=== PATIENT | female | born 1990 | race Caucasian/White ===

== ENCOUNTER 2019-03-12 15:13 | Emergency (ER) | payer OTHER ==
[~2019-03-12] VITALS: Ht 152.4 cm; Wt 51.7 kg
[2019-03-12] MEDS ORDERED: IV NORMAL SALINE 1,000ML 1,000 ML IV ONE (15:30)
--- NOTE | 2019-03-12 15:51 | PHYS DOC ---
Past History Past Medical History: No Pertinent History, Other Past Surgical History: Appendectomy, Smoking: Non-smoker Additional Smoking Information: CUT BACK TO 5/DAY Alcohol Use: None Drug Use: None Adult General Chief Complaint Chief Complaint: VOMITING IN HPI HPI 28 year old female presents with vomiting. She believes she is 6 weeks . She has had a positive home test. This is her fourth . She has been having nausea and vomiting daily and it's making it difficult for her to go to work. She just wants to vomiting control so she can work. 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 She denies abdominal cramping, vaginal bleeding or vaginal discharge. She denies fever or chills. Review of Systems Review of Systems Constitutional: Denies fever or chills [] Eyes: Denies change in visual acuity, redness, or eye pain [] HENT: Denies nasal congestion or sore throat [] Respiratory: Denies cough or shortness of breath [] Cardiovascular: No additional information not addressed in HPI [] GI: nausea, vomiting. Denies abdominal pain, bloody stools or diarrhea [] : Denies dysuria or hematuria [] Musculoskeletal: Denies back pain or joint pain [] Integument: Denies rash or skin lesions [] Neurologic: Denies headache, focal weakness or sensory changes [] Endocrine: Denies polyuria or polydipsia [] All other systems were reviewed and found to be within normal limits, except as documented in this note. Current Medications Current Medications Current Medications Medications (Trade) Dose Ordered Sig/Feliciano Start Time Stop Time Status Last Admin Dose Admin Ondansetron HCl (Zofran) 4 mg 1X ONCE 03/12/19 16:00 03/12/19 16:01 03/12/19 15:39 4 MG Sodium Chloride 1,000 ml @ 1,000 mls/hr 1X ONCE 03/12/19 15:30 03/12/19 16:29 03/12/19 15:39 1,000 MLS/HR Allergies Allergies Allergies Coded Allergies Type Severity Reaction Last Updated Verified adhesive Allergy Unknown rash 05/19/13 Yes Physical Exam Physical Exam Constitutional: Well developed, well nourished, no acute distress, non-toxic appearance. [] HENT: Normocephalic, atraumatic, bilateral external ears normal, oropharynx moist, no oral exudates, nose normal. [] Eyes: PERRLA, EOMI, conjunctiva normal, no discharge. [] Neck: Normal range of motion, no tenderness, supple, no stridor. [] Cardiovascular:Heart rate regular rhythm, no murmur [] Lungs & Thorax: Bilateral breath sounds clear to auscultation [] Abdomen: Bowel sounds normal, soft, no tenderness, no masses, no pulsatile masses. [] Skin: Warm, dry, no erythema, no rash. [] Back: No tenderness, no CVA tenderness. [] Extremities: No tenderness, no cyanosis, no clubbing, ROM intact, no edema. [] Neurologic: Alert and oriented X 3, normal motor function, normal sensory function, no focal deficits noted. [] Psychologic: Affect normal, judgement normal, mood normal. [] EKG EKG [] Radiology/Procedures Radiology/Procedures [] Course & Med Decision Making Course & Med Decision Making Pertinent Labs and Imaging studies reviewed. (See chart for details) Patient's labs are unremarkable. Her hCG is 2405. I've given her liter normal saline and 4 mg of Zofran. She has not had any further vomiting in the ED. I will discharge her with a prescription for promethazine and I have advised her to try Unisom and B6 first. She is stable for discharge at this time. [] Dragon Disclaimer Dragon Disclaimer This electronic medical record was generated, in whole or in part, using a voice recognition dictation system. Departure Departure: Impression: Primary Impression: Vomiting during Disposition: 01 HOME, SELF-CARE Condition: IMPROVED Referrals: PCP,SERGIO (PCP) Patient Instructions: Nausea and Vomiting, [id number], - First Trimester, [id number] Scripts Promethazine Hcl (PROMETHAZINE HCL) 12.5 Mg Tablet 1 TAB PO Q6HRS PRN for VOMITING for 7 Days, #28 TAB 0 Refills Prov: SABI GARDNER DO 03/12/19 SABI GARDNER DO Mar 12, 2019 15:51
[2019-03-12 15:59] LABS: CALCIUM 8.3 mg/dL (8.5-10.1); CREATININE 0.6 mg/dL (0.6-1.0); GFR 120.8; POTASSIUM 3.7 mmol/L (3.5-5.1)
[2019-03-12] MEDS ORDERED: ONDANSETRON PF 4 MG/2 ML VIAL. IVP ONE (16:00)
[2019-03-12] MEDS ORDERED: PROM12.58 PO (16:00)
[2019-03-12 16:04] LABS: ALBUMIN/GLOBULIN RATIO 0.8 (1.0-1.7); BASO # 0.1 x10^3/uL (0.0-0.2); BASO % 1 % (0-3); EOS # 0.2 x10^3/uL (0.0-0.7); EOS % 2 % (0-3); HEMATOCRIT 35.5 % (36.0-47.0); HEMOGLOBIN 10.7 g/dL (12.0-15.5); LYMPH # 2.9 x10^3/uL (1.0-4.8); LYMPH % 36 % (24-48); MEAN CORPUSCULAR HEMOGLOBIN 21 pg (25-35); MEAN CORPUSCULAR HGB CONC 30 g/dL (31-37); MEAN CORPUSCULAR VOLUME 69 fL (79-100); MONO # 0.6 x10^3/uL (0.0-1.1); MONO % 8 % (0-9); NEUT # 4.4 x10^3uL (1.8-7.7); NEUT % 53 % (31-73); PLATELET COUNT 379 x10^3/uL (140-400); RED BLOOD COUNT 5.12 x10^6/uL (3.50-5.40); RED CELL DISTRIBUTION WIDTH 22.7 % (11.5-14.5); TOTAL BILIRUBIN 0.1 mg/dL (0.2-1.0); WHITE BLOOD COUNT 8.2 x10^3/uL (4.0-11.0)
[2019-03-12 16:24] VITALS: BP 98/54
[2019-03-12 17:03] LABS: BILIRUBIN,URINE NEG (NEG); CLARITY,URINE CLEAR; COLOR,URINE YELLOW; GLUCOSE,URINE NEG (NEG); NITRITE,URINE NEG (NEG); UROBILINOGEN,URINE 0.2 mg/dL (0.2 mg/dL)
[2019-03-12 17:04] LABS: BACTERIA,URINE 0 /HPF (0-FEW); RBC,URINE 0 /HPF (0-2); SQUAMOUS EPITHELIAL CELL,UR OCC /LPF; WBC,URINE 0 /HPF (0-4)
[2019-03-12 17:21] LABS: ANISOCYTOSIS SLIGHT; HYPOCHROMIA MOD; MICROCYTOSIS MOD; OVALOCYTES FEW; PLT ESTIMATE ADEQUATE (ADEQUATE); SCHISTOCYTES OCC; TEAR DROP CELLS OCC
== END 2019-03-12 16:56 | disposition home or self-care (01) ==
LOC: ER 15:13
DX: O21.9 Vomiting of pregnancy, unspecified (principal); Z3A.01 Less than 8 weeks gestation of pregnancy; Z88.8 Allergy status to other drugs, medicaments and biological substances
CPT/HCPCS: 36415; 80053; 81001; 84702; 85025; 96361; 96374; 99284; J2405; J7030

== ENCOUNTER 2019-09-25 09:43 | Emergency (ER) | payer OTHER ==
[~2019-09-25] VITALS: Ht 152.4 cm; Wt 59.1 kg
[~2019-09-25 09:43] MED LIST: PROM12.58 PO
[2019-09-25 09:47] VITALS: BP 117/61
--- NOTE | 2019-09-25 10:55 | PHYS DOC ---
Past History Past Medical History: No Pertinent History Past Surgical History: Appendectomy, , Hysterectomy Smoking: Non-smoker Alcohol Use: None Drug Use: None Adult General Chief Complaint Chief Complaint: CHEST PAIN HPI HPI Patient is a 29-year-old female with no remarkable past medical history pr esenting for URI-like symptoms Onset was 2 days ago without known inciting event Nothing known makes better, has not administered anything to try and make better. Nothing known specifically makes worse Patient denies being in any pain Timing of symptoms has been constant and worsening since onset Associated symptoms include headache, sinus pressure, rhinorrhea that is clear, dry nonproductive cough, and generalized malaise Patient has been afebrile throughout entirety of illness, admits cleaning houses for a living and unsure if she has been exposed to any known COVID positive individuals. Nonetheless, employer wanting patient to be evaluated and tested for COVID-19 prior to returning to work Review of Systems Review of Systems Fourteen body systems of review of systems have been reviewed. See HPI for pertinent positives and negative responses, other roth all other systems are negative, non-pertinent or non-contributory Allergies Allergies Allergies Coded Allergies Type Severity Reaction Last Updated Verified adhesive Allergy Unknown rash 05/19/13 Yes Physical Exam Physical Exam Constitutional: Well developed, well nourished, no acute distress, non-toxic appearance. [] HENT: Normocephalic, atraumatic, bilateral external ears normal, oropharynx moist, no oral exudates, nose normal. [] Eyes: PERRLA, EOMI, conjunctiva normal, no discharge. [] Neck: Normal range of motion, no tenderness, supple, no stridor. [] Cardiovascular:Heart rate regular rhythm, no murmur [] Lungs & Thorax: Bilateral breath sounds clear to auscultation [] Abdomen: Bowel sounds normal, soft, no tenderness, no masses, no pulsatile masses. [] Skin: Warm, dry, no erythema, no rash. [] Back: No tenderness, no CVA tenderness. [] Extremities: No tenderness, no cyanosis, no clubbing, ROM intact, no edema. [] Neurologic: Alert and oriented X 3, normal motor function, normal sensory function, no focal deficits noted. [] Psychologic: Affect normal, judgement normal, mood normal. [] Current Patient Data Vital Signs Vital Signs Date Time Temp Pulse Resp B/P (MAP) Pulse Ox O2 Delivery O2 Flow Rate FiO2 09/25/19 09:47 98.4 83 16 117/61 (79) 99 Room Air EKG EKG [] Radiology/Procedures Radiology/Procedures PROCEDURE: CHEST AP ONLY CHEST AP ONLY History: Reason: chest pain / Spl. Instructions: / History: Comparison: None. Findings: No consolidation or pleural effusion. Normal heart size. No pneumothorax. Nipple shadow projecting over the right lung base. Impression: 1. No acute cardiopulmonary process. Electronically signed by: Bao Mccrary DO (09/25/2019 10:52 AM) [facility] Course & Med Decision Making Course & Med Decision Making Presentation most consistent with Viral Syndrome. Based on vitals and exam they are nontoxic and stable for discharge. Given History and Exam I have a lower suspicion for: Emergent CardioPulmonary causes [such as Acute Asthma or COPD Exacerbation, acute Heart Failure or exacerbation, PE, PTX, atypical ACS, PNA]. Emergent Otolaryngeal causes [such as SOLAR INSTALLATION FOREMAN, RPA, Ludwigs, Epiglottitis, EBV]. Regarding Emergent Travel or Immunosuppressive related infectious: I have a low suspicion for acute HIV. 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 Will provide strict return precautions and instructions on self- isolation/quarantine and anticipatory guidance. 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 Departure Departure: Impression: Primary Impression: Person under investigation for COVID-19 Additional Impression: URI (upper respiratory infection) Disposition: 01 HOME/RESIDENCE PRIOR TO ADM Condition: STABLE Referrals: PCP,SERGIO (PCP) Additional Instructions: Short You were evaluated in the Emergency Department today for a cough. Your evaluation suggests a viral infection such as Coronavirus. It is important that you continue to self isolate and practice good hygiene at home. Please follow up with your primary care physician as discussed. Return to the Emergency Department if you experience worsening cough, fever, shortness of breath, recurrent vomiting, lethargy, or any other concerning symptoms. Thank you for choosing us for your care. Usted fue evaluado en el Departamento de Emergencia hoy por tos. Belle evaluacin sugiere crow infeccin viral jd el coronavirus. Es importante que contine aislndose y practicando crow buena higiene en el hogar. Sally un seguimiento con belle mdico de atencin primaria jd se discuti. Regrese al Departamento de Emergencias si experimenta un empeoramiento de la tos, fiebre, falta de aliento, vmitos recurrentes, letargo o cualquier otro sntoma relacionado. Puneet por elegir nosotros para belle atencin. Home Care Instructions for Patients with Mild Respiratory Infection Most people with respiratory infections like colds, the flu, and Coronavirus Disease (COVID-19) will have mild illness and can get better with appropriate home care and without the need to see a provider. People who are elderly, , or have a weak immune system, or other medical problem are at higher risk of more serious illness or complications. It is recommended that they carefully monitor their symptoms closely and seek medical care early if their symptoms get worse. TREATMENT AND MEDICAL CARE Treatment There is no specific treatment for most viruses including those that that cause the common cold and those that cause COVID-19. Sometimes there is treatment for the viruses that cause influenza if given early. Antibiotics treat infections caused by bacteria, but they do not work against viruses.Most people recover on their own from these viruses, including COVID-19. Here are steps that you can take to help you get better: Rest Drink plenty of fluids Take lzpx-eiq-[id number] cold and flu medications to reduce fever and pain. Follow the instructions on the package, unless your doctor gave you instructions. Note that these medicines do not ``cure the illness and therefore do not stop you from spreading germs. Children should not be given medication that contains aspirin (acetylsalicylic acid) because it can cause a rare but serious illness called Shahid syndrome. Medicines without aspirin include acetaminophen (Tylenol) and ibuprofen (Advil, Motrin). Children younger than age 2 should not be given any uolr-eat-owlqgsn cold medications without first speaking with a doctor.Seeking Medical Care You should seek medical care if you are not getting better within a week, or if your symptoms get worse. If you are elderly, , have a weak immune system, or other medical problems, call your doctor right away. It is best to call ahead of time to discuss your symptoms, if possible. This may allow you to receive the advice you need by phone. By avoiding a visit to a healthcare facility, you protect yourself from getting a new infection and protect others from catching an infection from you. If you do visit a healthcare facility, put on a mask to protect other patients and staff. It is recommended that you seek medical care for serious symptoms, such as: People with potentially life-threatening symptoms should call 911. If possible, put on a facemask before emergency medical services arrive.PROTECTING OTHERS Follow the steps below to help prevent the disease from spreading to people in your home and community.Stay home when you are sick Stay home - do not go to work, school, or public areas. Stay home for at least 24 hours after your symptoms have gone away without the use of fever-reducing medicines. If you must leave home while you are sick, try to avoid using public transportation, ride-shares, and taxis. Wear a mask if possible. Separate yourself from other people and animals in your home Stay in a specific room and away from other people in your home as much as possible. Use a separate bathroom, if available. Try to stay at least 6 feet from others. Do not handle pets or other animals while you are sick. Cover your coughs and sneezes Cover your mouth and nose with a tissue when you cough or sneeze. Throw used tissues in a lined trash can; immediately wash your hands. Avoid sharing personal household items Do not share dishes, drinking glasses, cups, eating utensils, towels, or bedding with other people or pets in your home. Wash them thoroughly with soap and water after use. Clean your hands often Wash your hands often with soap and water for at least 20 seconds. If soap and water are not available, clean your hands with an alcohol-based hand pattern grader supervisor that contains at least 60% alcohol, covering all surfaces of your hands and rubbing them together until they feel dry. Use soap and water if your hands are visibly dirty. Clean all ``high-touch surfaces every day High touch surfaces include counters, tabletops, doorknobs, bathroom fixtures, toilets, phones, keyboards, tablets, and bedside tables. Also, clean any surfaces that may have body fluids on them. Use a household cleaning spray or wipe, according to the product label instructions. COVID-19 (Novel Coronavirus) FAQs for Inquiring Patients What do you do if you are worried that you have been exposed to COVID-19 but are without any symptoms? If you develop symptoms that may indicate an infection, contact your physician. These include fever, cough, and shortness of breath. Testing is not available for asymptomatic individuals, regardless of travel history. To reduce the chance of getting sick use general infection prevention measures such as hand washing, covering your mouth and nose when you cough or sneeze and discarding any tissues carefully, and staying home when you are sick.Can exceptions be made for patients who are really worried and want to be tested? Presently testing is only available through the [facility] Department of Public Health and Centers for Disease Control and Prevention. Only patients who meet the updated COVID-19 PUI definition may be tested. We do not control or set the PUI definition or evaluation criteria. We are unable to provide testing to patients who do not meet the strict criteria. Should patients cancel or postpone an upcoming trip? The decision about travel is personal and should be made in the context of a persons underlying health conditions, reason for travel and necessity of travel. Travel insurance generally does not cover cancellations due to concerns of infectious disease outbreaks. The Center for Disease Control has a section on travel notices. Situations are changing frequently and you should monitor the site for updates. Should situations change rapidly in a foreign country while they are traveling, you could be subject to quarantine or restrictions upon return to the [place]. It is best to have a plan on how to return urgently if needed during a trip abroad. Because of how air circulates and is filtered on airplanes, most viruses do not spread easily on airplanes. CDC does not recommend use of facemasks during air travel.What other general precautions are advised? Patients should be instructed to: Avoid close contact with people who are sick. Avoid touching your eyes, nose and mouth. Stay home from work or school when they are sick. If you have a fever, you should remain home until 24 hours after fever resolves. Clean and disinfect frequently touched objects and surfaces using a regular household cleaning spray or wipe. Sneeze/cough into their elbow, not your hand. Practice frequent hand hygiene with soap and water (at least 20 seconds) or alcohol-based hand rub. Consider avoiding crowded places or mass gatherings, especially if you are immunocompromised or have chronic lung disease. There is no evidence to support transmission of COVID-19 from goods imported from [place]. Are there any special precautions that are recommended if I am ? There is not yet any information available about the susceptibility of women to COVID-19. As a general rule, women may be more susceptible to viral respiratory infections and at risk for more severe illness. The CDC guidance for COVID-19 and has answers to questions about transmission during delivery, as well as other situations. Should food, water, or medications be stockpiled? Should people telecommute? The CDC has excellent information on this. Please visit the CDCs guidance for getting your household ready for COVID-19. What should I do if I start feeling sick at work? And what should the workplace do for anyone exposed? Anyone who is sick with a fever and cough should stay home from work until at least 24 hours after resolution of fever, regardless of concerns for COVID-19. It is still influenza (flu) season and influenza remains far more common. Justification of Admission: Justification of Admission: Justification of Admission Dx: N/A Problem Qualifiers SILVINO LEA DO Sep 25, 2019 10:55
--- NOTE | 2019-09-26 11:08 | NUR ---
IP: patient notified of COVID result.
== END 2019-09-25 11:15 | disposition home or self-care (01) ==
LOC: ER 09:43
DX: J06.9 Acute upper respiratory infection, unspecified (principal); Z20.828 Contact with and (suspected) exposure to other viral communicable diseases; Z90.49 Acquired absence of other specified parts of digestive tract; Z98.890 Other specified postprocedural states; Z90.710 Acquired absence of both cervix and uterus; Z88.8 Allergy status to other drugs, medicaments and biological substances
CPT/HCPCS: 36415; 71045; 99284; U0003

== ENCOUNTER 2019-10-22 15:38 | Emergency (ER) | payer OTHER ==
[~2019-10-22] VITALS: Ht 152.4 cm; Wt 59.0 kg
[2019-10-22] MEDS ORDERED: PRED20TA PO (16:54)
[2019-10-22] MEDS ORDERED: TRAM50TA PO (16:54)
--- NOTE | 2019-10-22 16:54 | PHYS DOC ---
Past History Past Medical History: No Pertinent History Past Surgical History: Appendectomy, , Hysterectomy Smoking: Non-smoker Alcohol Use: None Drug Use: None General Adult EDM: Chief Complaint: HAND PROBLEM HPI: HPI: Patient is a 29-year-old female who presented to ER today for evaluation pain on her left wrist that migrated into her left elbow and her left shoulder intermittently for about 3 weeks. Patient denies any injury, denies any chest pain, no fever, no cough, no trouble breathing. Review of Systems: Review of Systems: Constitutional: Denies fever or chills Eyes: Denies change in visual acuity HENT: Denies nasal congestion or sore throat Respiratory: Denies cough or shortness of breath Cardiovascular: Denies chest pain or edema GI: Denies abdominal pain, nausea, vomiting, bloody stools or diarrhea : Denies dysuria Musculoskeletal: Denies back pain , positive for joint pain in her left wrist, left elbow, left shoulder. Integument: Denies rash Neurologic: Denies headache, focal weakness or sensory changes Endocrine: Denies polyuria or polydipsia Lymphatic: Denies swollen glands Psychiatric: Denies depression or anxiety Heart Score: Risk Factors: Risk Factors: DM, Current or recent (<one month) smoker, HTN, HLP, family history of CAD, obesity. Risk Scores: Score 0 - 3: 2.5% MACE over next 6 weeks - Discharge Home Score 4 - 6: 20.3% MACE over next 6 weeks - Admit for Clinical Observation Score 7 - 10: 72.7% MACE over next 6 weeks - Early Invasive Strategies Current Medications: Current Meds: Current Medications Medications (Trade) Dose Ordered Sig/[facility] Start Time Stop Time Status Last Admin Dose Admin Ketorolac Tromethamine (Toradol Im) 60 mg 1X ONCE 10/22/19 17:00 10/22/19 17:01 UNV Methylprednisolone Sodium Succinate (SOLU-Medrol 125MG VIAL) 125 mg 1X ONCE 10/22/19 17:00 10/22/19 17:01 UNV Allergies: Allergies: Allergies Coded Allergies Type Severity Reaction Last Updated Verified adhesive Allergy Unknown rash 10/22/19 Yes ibuprofen Allergy Unknown 10/22/19 Yes Physical Exam: PE: Constitutional: Well developed, well nourished, no acute distress, non-toxic appearance. [] HENT: Normocephalic, atraumatic, bilateral external ears normal, oropharynx moist, no oral exudates, nose normal. [] Eyes: PERRLA, EOMI, conjunctiva normal, no discharge. [] Neck: Normal range of motion, no tenderness, supple, no stridor. [] Cardiovascular:Heart rate regular rhythm, no murmur [] Lungs & Thorax: Bilateral breath sounds clear to auscultation [] Abdomen: Bowel sounds normal, soft, no tenderness, no masses, no pulsatile masses. [] Skin: Warm, dry, no erythema, no rash. [] Back: No tenderness, no CVA tenderness. [] Extremities: There is some tenderness to palpation on the left wrist area by the radial side, no swelling, no erythema, left elbow tender to palpation but there is no swelling or evidence of infection, left shoulder with full range of motion. Neurologic: Alert and oriented X 3, normal motor function, normal sensory function, no focal deficits noted. [] Psychologic: Affect normal, judgement normal, mood normal. [] Current Patient Data: Vital Signs: Vital Signs Date Time Temp Pulse Resp B/P (MAP) Pulse Ox O2 Delivery O2 Flow Rate FiO2 10/22/19 15:38 97.7 79 18 102/65 (77) 97 Room Air EKG: EKG: [] Radiology/Procedures: Radiology/Procedures: [] Course & Med Decision Making: Course & Med Decision Making Pertinent Labs and Imaging studies reviewed. (See chart for details) Patient is a 29-year-old female who was evaluated in ER due to migrating pain from her left wrist, left elbow and left shoulder intermittently over 3 weeks. It is suspect that patient had arthritis, patient was given Solu-Medrol and Toradol injection in the ER, she was discharged home with prednisone and tramadol. Will need to follow her family doctor for reevaluation. Bre Disclaimer: Bre Disclaimer: This electronic medical record was generated, in whole or in part, using a voice recognition dictation system. Departure Departure: Impression: Primary Impression: Arthritis Disposition: 01 HOME/RESIDENCE PRIOR TO ADM Condition: STABLE Referrals: PCP,NO (PCP) Patient Instructions: Arthritis, Nonspecific Additional Instructions: Thank you for visiting our Emergency Department. We appreciate you trusting us with your care. If any additional problems come up don't hesitate to return to isit us. Please follow up with your primary care provider so they can plan additional care if needed and know about the problem that you had. If symptoms worsen come back to the Emergency Department. Any concerning symptoms that start such as chest pain, shortness of air, weakness or numbness on one side of the body, running high fevers or any other concerning symptoms return to the ER. Scripts Tramadol Hcl (TRAMADOL HCL) 50 Mg Tablet 50 MG PO PRN Q6HRS PRN for PAIN, #15 TAB Prov: SHAYY LOPES DO 10/22/19 Prednisone (PREDNISONE) 20 Mg Tablet 1 TAB PO DAILY for arthritis for 7 Days, #7 TAB Prov: SHAYY LOPES DO 10/22/19 Justification of Admission: Justification of Admission: Justification of Admission Dx: N/A SHAYY LOPES DO Oct 22, 2019 16:54
[2019-10-22] MEDS ORDERED: KETOROLAC 60 MG/2 ML VIAL. IM ONE (17:00)
[2019-10-22] MEDS ORDERED: methylPREDNISolone SOD SUCC PF 125 MG/2 ML VIAL. IM ONE (17:00)
[2019-10-22 17:20] VITALS: BP 100/58
== END 2019-10-22 17:22 | disposition home or self-care (01) ==
LOC: ER 15:38
DX: M19.032 Primary osteoarthritis, left wrist (principal); Z88.8 Allergy status to other drugs, medicaments and biological substances; Z88.6 Allergy status to analgesic agent
CPT/HCPCS: 96372; 99284; J1885; J2930

== ENCOUNTER 2020-06-22 21:27 | Emergency (ER) | payer OTHER ==
[~2020-06-22] VITALS: Ht 152.4 cm; Wt 54.0 kg
[~2020-06-22 21:27] MED LIST changes: +PRED20TA PO; +TRAM50TA PO
--- NOTE | 2020-06-22 21:38 | PHYS DOC ---
Past History Past Medical History: No Pertinent History, Constipation, Migraines Past Medical History Chronic Abdomen pain Past Surgical History: Appendectomy, , Hysterectomy Smoking: Non-smoker Alcohol Use: None Drug Use: None General Adult HPI: HPI: ".. I doing an abd. prep for colon and egd.. .. but I am cramping really bad after 2 bottles.. nausea..diarrhea..." " .. I am getting the scope for evaluation of my recurrent abdomen pain.. ". " It going to be done in one of those out pt.. surgery centers..".. " I know .. I ve got todo the prep.. but I never expected this much discomfort..and diarrhea..." Patient is a 30 year old female who presents with above hx and complaints generalized abdomen pain, nausea, diarrhea, and cramping. Patient has had a history of previous recurrent episodes of abdomen pain with no severe etiology. Patient has had previously appendectomy, cholecystectomy.and hysterectomy. Patient does have some history of intermittent episodes of constipation. No recent travel. No specific ill contacts. Patient following with GI group for her recurrent episodes of abdomen pain. Patient does have a past history of migraines. Patient concerned she is getting dehydrated from all the diarrhea. Review of Systems: Review of Systems: Constitutional: Denies fever or chills Eyes: Denies change in visual acuity HENT: Denies nasal congestion or sore throat Respiratory: Denies cough or shortness of breath Cardiovascular: Denies chest pain or edema GI: Complains of generalized abdominal pain, nausea, and watery diarrhea : Denies dysuria Musculoskeletal: Denies back pain or joint pain Integument: Denies rash Neurologic: Denies headache, focal weakness or sensory changes Endocrine: Denies polyuria or polydipsia Lymphatic: Denies swollen glands Psychiatric: Denies depression or anxiety Family History: Family History: Noncontributory to presentation Current Medications: Current Meds: See nursing for home meds Allergies: Allergies: Allergies Coded Allergies Type Severity Reaction Last Updated Verified adhesive Allergy Unknown rash 10/22/19 Yes ibuprofen Adverse Reaction Unknown 10/22/19 Yes Physical Exam: PE: Constitutional: Moderate acute distress, non-toxic appearance. [] HENT: Normocephalic, atraumatic, bilateral external ears normal, oropharynx dry, no oral exudates, nose normal. [] Eyes: PERRLA, EOMI, conjunctiva normal, no discharge. [] Neck: Normal range of motion, no tenderness, supple, no stridor. [] Cardiovascular:Heart rate regular rhythm, no murmur [] Lungs & Thorax: Bilateral breath sounds equal at apex on auscultation [] Abdomen: Bowel sounds hyperactive, soft, generalized tenderness, no masses, no pulsatile masses. Old surgery scars. No focal areas of rebound Skin: Warm, dry, no erythema, no rash. [] Back: No tenderness, no CVA tenderness. [] Extremities: No tenderness, no cyanosis, no clubbing, ROM intact, no edema. No psoas sign. Neurologic: Alert and oriented X 3, normal motor function, normal sensory function, no focal deficits noted. [] Psychologic: Affect anxious, judgement normal, mood normal. [] EKG: EKG: [] Radiology/Procedures: Radiology/Procedures: [] Heart Score: C/O Chest Pain: N/A Risk Factors: Risk Factors: DM, Current or recent (<one month) smoker, HTN, HLP, family history of CAD, obesity. Risk Scores: Score 0 - 3: 2.5% MACE over next 6 weeks - Discharge Home Score 4 - 6: 20.3% MACE over next 6 weeks - Admit for Clinical Observation Score 7 - 10: 72.7% MACE over next 6 weeks - Early Invasive Strategies Course & Med Decision Making: Course & Med Decision Making Pertinent Labs and Imaging studies reviewed. (See chart for details) Patient continue her GI prep. Patient continue follow-up with GI specialty. With normal white count and stable electrolytes suspect her discomfort is from the GI prep.-Which is not unusual. Patient keep her follow-up as planned. Return if any concerns. Follow-up urine results. Impression: 1. Generalized abdomen pain after starting GI EGD and colonoscopy prep 2. Mild dehydration [] Dragon Disclaimer: Dragon Disclaimer: This electronic medical record was generated, in whole or in part, using a voice recognition dictation system. Departure Departure: Referrals: PCP,NO (PCP) Dragon Disclaimer This chart was dictated in whole or in part using Voice Recognition software in a busy, high-work load, and often noisy Emergency Department environment. It may contain unintended and wholly unrecognized errors or omissions. PREM LI MD June 22, 2020 21:38
[2020-06-22] MEDS ORDERED: IV RINGERS SOLUTION,LACTATED 1,000 ML IV ONE (23:00)
[2020-06-22] MEDS ORDERED: FAMOTIDINE 20 MG/2 ML VIAL IVP ONE (23:00)
[2020-06-22 23:03] LABS: BASO % 0 % (0-3); EOS # 0.2 x10^3/uL (0.0-0.7); EOS % 2 % (0-3); HEMATOCRIT 38.6 % (36.0-47.0); HEMOGLOBIN 12.8 g/dL (12.0-15.5); LYMPH # 3.1 x10^3/uL (1.0-4.8); LYMPH % 35 % (24-48); MEAN CORPUSCULAR HEMOGLOBIN 30 pg (25-35); MEAN CORPUSCULAR HGB CONC 33 g/dL (31-37); MEAN CORPUSCULAR VOLUME 90 fL (79-100); MONO # 0.7 x10^3/uL (0.0-1.1); MONO % 8 % (0-9); NEUT % 55 % (31-73); PLATELET COUNT 205 x10^3/uL (140-400); RED CELL DISTRIBUTION WIDTH 14.2 % (11.5-14.5); WHITE BLOOD COUNT 8.9 x10^3/uL (4.0-11.0)
[2020-06-23 01:36] LABS: CALCIUM 8.3 mg/dL (8.5-10.1); CREATININE 0.7 mg/dL (0.6-1.0); GFR 99.6; POTASSIUM 3.5 mmol/L (3.5-5.1)
[2020-06-23 01:46] LABS: ALBUMIN 3.1 g/dL (3.4-5.0); ALBUMIN/GLOBULIN RATIO 0.9 (1.0-1.7); TOTAL BILIRUBIN 0.6 mg/dL (0.2-1.0); TOTAL PROTEIN 6.6 g/dL (6.4-8.2)
[2020-06-23 03:15] VITALS: BP 82/41
== END 2020-06-23 03:15 | disposition home or self-care (01) ==
LOC: ER 21:27
DX: E86.0 Dehydration (principal); R10.84 Generalized abdominal pain; R19.7 Diarrhea, unspecified; R11.0 Nausea; G43.909 Migraine, unspecified, not intractable, without status migrainosus; Z90.89 Acquired absence of other organs; Z98.890 Other specified postprocedural states; Z90.710 Acquired absence of both cervix and uterus; Z88.8 Allergy status to other drugs, medicaments and biological substances
CPT/HCPCS: 36415; 80053; 82150; 83690; 85025; 96361; 96374; 99283; J3490; J7120

== ENCOUNTER 2020-10-21 08:03 | Emergency (ER) | payer OTHER ==
[~2020-10-21] VITALS: Ht 152.4 cm; Wt 50.2 kg
[2020-10-21] MEDS ORDERED: IV NORMAL SALINE 1,000ML 1,000 ML IV ONE (08:15)
--- NOTE | 2020-10-21 08:26 | PHYS DOC ---
Past History Past Medical History: No Pertinent History, Constipation, Migraines Past Surgical History: Appendectomy, , Hysterectomy Smoking: Non-smoker Alcohol Use: None Drug Use: None General Adult EDM: Chief Complaint: BLOOD IN URINE HPI: HPI: 30-year-old female presents with urinary retention and blood in her urine. Patient woke up at 430 this morning feeling like she needed to urinate. She did not feel like she was able to get any urine out, but there was blood in the toilet. She went back to bed. She woke up later and had the same sensation. She was able to get out a little bit of urine, but again there was significant blood in the toilet. She has lower abdominal pain that she describes as pressure. Patient has had a hysterectomy with ovarian sparing. This was due to excessive bleeding after D&C. The patient denies any foreign bodies or vaginal trauma. She is not sure if the bleeding is coming from she did have a bowel movement today that was normal. She was feeling completely normal yesterday. Denies fever or chills. Review of Systems: Review of Systems: Constitutional: Denies fever or chills Eyes: Denies change in visual acuity HENT: Denies nasal congestion or sore throat Respiratory: Denies cough or shortness of breath Cardiovascular: Denies chest pain or edema GI: Denies abdominal pain, nausea, vomiting, bloody stools or diarrhea : Urinary retention, blood in urine Musculoskeletal: Denies back pain or joint pain Integument: Denies rash Neurologic: Denies headache, focal weakness or sensory changes Endocrine: Denies polyuria or polydipsia Lymphatic: Denies swollen glands Psychiatric: Denies depression or anxiety Current Medications: Current Meds: Current Medications Medications (Trade) Dose Ordered Sig/Feliciano Start Time Stop Time Status Last Admin Dose Admin Sodium Chloride 1,000 ml @ 1,000 mls/hr 1X ONCE 10/21/20 08:15 10/21/20 09:14 Allergies: Allergies: Allergies Coded Allergies Type Severity Reaction Last Updated Verified adhesive Allergy Unknown rash 10/22/19 Yes ibuprofen Adverse Reaction Unknown 10/22/19 Yes Physical Exam: PE: Constitutional: Well developed, well nourished, no acute distress, non-toxic appearance. [] HENT: Normocephalic, atraumatic, bilateral external ears normal, oropharynx moist, no oral exudates, nose normal. [] Eyes: PERRLA, EOMI, conjunctiva normal, no discharge. [] Neck: Normal range of motion, no tenderness, supple, no stridor. [] Cardiovascular: Heart rate regular rhythm, no murmur [] Lungs & Thorax: Bilateral breath sounds clear to auscultation [] Abdomen: Bowel sounds normal, soft, suprapubic tenderness, no masses, no pulsatile masses. [] Skin: Warm, dry, no erythema, no rash. [] Back: No tenderness, no CVA tenderness. [] Extremities: No tenderness, no cyanosis, no clubbing, ROM intact, no edema. [] Neurologic: Alert and oriented X 3, normal motor function, normal sensory function, no focal deficits noted. [] Psychologic: Affect normal, judgement normal, mood concerned. : Skin tenderness between the vagina and rectum, shaved pubic hair, no significant vaginal discharge, mild discomfort with pelvic exam. No cervical tenderness. [] EKG: EKG: [] Radiology/Procedures: Radiology/Procedures: [] Impressions: CT abdomen pelvis with contrast. HISTORY: Pelvic pain, vaginal bleeding, history of hysterectomy, history appendectomy CT abdomen pelvis was done using 75 mL Isovue-370 contrast. Lung bases are clear. There is no effusion. 5 mm nodule in the lateral right lower lobe. Fleischner Society guidelines recommend an optional one-year follow-up for high risk individuals only. Liver is normal in appearance. There is no calcified gallstone. Spleen and adrenal glands are normal. Pancreas is unremarkable. There is no mass or hydronephrosis in the kidneys. There is no bowel obstruction or ascites. There is a 2.5 x 1.6 cm cyst or follicle in the left ovary. Patient's had a hysterectomy. There is a trace of fluid in the pelvis which is nonspecific. Bowel pattern is unremarkable. Bladder is unremarkable. Definite vaginal mass is not identified. There is no pelvic abscess bowel loops in the pelvis are nonspecific. IMPRESSION: 1. No vaginal mass noted. 2. Trace of fluid in the pelvis but no other abnormal fluid collections. 3. Left ovarian cyst or follicle. 4. Small nodule left lower lobe. 5. No bowel obstruction or other acute finding. PQRS Compliance Statement: One or more of the following individualized dose reduction techniques were utilized for this examination: 1. Automated exposure control 2. Adjustment of the mA and/or kV according to patient size 3. Use of iterative reconstruction technique Electronically signed by: Renetta Perez MD (10/21/2020 9:24 AM) [facility] DICTATED AND SIGNED BY: RENETTA PEREZ MD DATE: 10/21/20916 CC: SABI GARDNER DO; PCP,NO ~MTH0 0 Heart Score: C/O Chest Pain: N/A Risk Factors: Risk Factors: DM, Current or recent (<one month) smoker, HTN, HLP, family history of CAD, obesity. Risk Scores: Score 0 - 3: 2.5% MACE over next 6 weeks - Discharge Home Score 4 - 6: 20.3% MACE over next 6 weeks - Admit for Clinical Observation Score 7 - 10: 72.7% MACE over next 6 weeks - Early Invasive Strategies Course & Med Decision Making: Course & Med Decision Making Pertinent Labs and Imaging studies reviewed. (See chart for details) The patient's labs are unremarkable. Her CT scan showed right-sided constipation as well as constipation pushing against the bladder. See patient read for more details. On pelvic exam, the patient was very tender in the perineal area between the vagina and her rectum. I did find 2 small fissures in the skin just outside of the rectum. This area was very tender to palpation. No active bleeding. The rest of her vaginal exam was essentially unremarkable. The patient's wet prep is negative. Her GC chlamydia is pending. I have given her directions for improving her constipation. She is stable for discharge at this time. [] Dragon Disclaimer: Dragon Disclaimer: This electronic medical record was generated, in whole or in part, using a voice recognition dictation system. Departure Departure: Impression: Primary Impression: Rectal fissure Additional Impression: Constipation Qualified Codes: K59.00 - Constipation, unspecified Disposition: HOME / SELF CARE / HOMELESS Condition: STABLE Referrals: PCP,NO (PCP) Additional Instructions: For your constipation you can a 4 times dose of MiraLAX as well as taking 1-2 tabs of Dulcolax. You could also drink 1/2-1 bottle of magnesium citrate. Drink plenty of clear, noncaffeinated fluids with either of these strategies. SABI GARDNER DO Oct 21, 2020 08:26
[2020-10-21] MEDS ORDERED: IOHEXOL 300 MG/ML 75 ML VIAL. IV ONE (08:45)
[2020-10-21 08:49] VITALS: BP 104/66
[2020-10-21 08:52] LABS: BASO % 0 % (0-3); EOS # 0.1 x10^3/uL (0.0-0.7); EOS % 1 % (0-3); HEMATOCRIT 41.9 % (36.0-47.0); HEMOGLOBIN 13.7 g/dL (12.0-15.5); LYMPH % 16 % (24-48); MEAN CORPUSCULAR HEMOGLOBIN 29 pg (25-35); MEAN CORPUSCULAR HGB CONC 33 g/dL (31-37); MEAN CORPUSCULAR VOLUME 90 fL (79-100); MONO # 0.7 x10^3/uL (0.0-1.1); MONO % 6 % (0-9); NEUT # 9.5 x10^3uL (1.8-7.7); NEUT % 77 % (31-73); PLATELET COUNT 196 x10^3/uL (140-400); RED BLOOD COUNT 4.68 x10^6/uL (3.50-5.40); RED CELL DISTRIBUTION WIDTH 13.9 % (11.5-14.5); WHITE BLOOD COUNT 12.5 x10^3/uL (4.0-11.0)
[2020-10-21 08:58] LABS: CALCIUM 8.4 mg/dL (8.5-10.1); CREATININE 0.8 mg/dL (0.6-1.0); GFR 85.4; POTASSIUM 4.5 mmol/L (3.5-5.1)
[2020-10-21 09:06] LABS: ALBUMIN 3.4 g/dL (3.4-5.0); ALBUMIN/GLOBULIN RATIO 0.9 (1.0-1.7); TOTAL BILIRUBIN 0.6 mg/dL (0.2-1.0); TOTAL PROTEIN 7.2 g/dL (6.4-8.2)
--- NOTE | 2020-10-21 09:27 | RAD ---
CT abdomen pelvis with contrast. HISTORY: Pelvic pain, vaginal bleeding, history of hysterectomy, history appendectomy CT abdomen pelvis was done using 75 mL Isovue-370 contrast. Lung bases are clear. There is no effusio n. 5 mm nodule in the lateral right lower lobe. Fleischner Society guidelines recommend an optional o ne-year follow-up for high risk individuals only. Liver is normal in appearance. There is no calcifie d gallstone. Spleen and adrenal glands are normal. Pancreas is unremarkable. There is no mass or hydr onephrosis in the kidneys. There is no bowel obstruction or ascites. There is a 2.5 x 1.6 cm cyst or follicle in the left ovary. Patient's had a hysterectomy. There is a trace of fluid in the pelvis whi ch is nonspecific. Bowel pattern is unremarkable. Bladder is unremarkable. Definite vaginal mass is n ot identified. There is no pelvic abscess bowel loops in the pelvis are nonspecific. IMPRESSION: 1. No vaginal mass noted. 2. Trace of fluid in the pelvis but no other abnormal fluid collections. 3. Left ovarian cyst or follicle. 4. Small nodule left lower lobe. 5. No bowel obstruction or other acute finding. PQRS Compliance Statement: One or more of the following individualized dose reduction techniques were utilized for this examinat ion: 1. Automated exposure control 2. Adjustment of the mA and/or kV according to patient size 3. Use of iterative reconstruction technique Electronically signed by: Dagoberto Choi MD (10/21/2020 9:24 AM) [facility]
[2020-10-21 11:39] LABS: BACTERIA,URINE 0 /HPF (0-FEW); BILIRUBIN,URINE NEG (NEG); CLARITY,URINE CLEAR; COLOR,URINE YELLOW; GLUCOSE,URINE NEG (NEG); NITRITE,URINE NEG (NEG); SQUAMOUS EPITHELIAL CELL,UR FEW /LPF; UROBILINOGEN,URINE 0.2 mg/dL (0.2 mg/dL)
== END 2020-10-21 12:08 | disposition home or self-care (01) ==
LOC: ER 08:03
DX: K59.00 Constipation, unspecified (principal); K60.2 Anal fissure, unspecified
CPT/HCPCS: 36415; 74177; 80053; 81001; 85025; 87086; 87491; 87591; 96360; 99285; J7030; Q0111; Q9967

== ENCOUNTER 2021-01-10 09:02 | Emergency (ER) | payer OTHER ==
[~2021-01-10] VITALS: Ht 152.4 cm; Wt 50.2 kg
[2021-01-10 09:10] VITALS: BP 103/61
[2021-01-10] MEDS ORDERED: ONDANSETRON PF 4 MG/2 ML VIAL. IVP ONE (09:45)
[2021-01-10] MEDS ORDERED: IV NORMAL SALINE 1,000ML 1,000 ML IV ONE (09:45)
[2021-01-10 10:13] LABS: BASO % 0 % (0-3); EOS # 0.2 x10^3/uL (0.0-0.7); EOS % 2 % (0-3); HEMATOCRIT 41.1 % (36.0-47.0); HEMOGLOBIN 13.6 g/dL (12.0-15.5); LYMPH # 2.9 x10^3/uL (1.0-4.8); LYMPH % 34 % (24-48); MEAN CORPUSCULAR HEMOGLOBIN 30 pg (25-35); MEAN CORPUSCULAR HGB CONC 33 g/dL (31-37); MEAN CORPUSCULAR VOLUME 90 fL (79-100); MONO # 0.5 x10^3/uL (0.0-1.1); MONO % 6 % (0-9); NEUT # 4.8 x10^3uL (1.8-7.7); NEUT % 57 % (31-73); PLATELET COUNT 220 x10^3/uL (140-400); RED BLOOD COUNT 4.57 x10^6/uL (3.50-5.40); RED CELL DISTRIBUTION WIDTH 14.1 % (11.5-14.5); WHITE BLOOD COUNT 8.4 x10^3/uL (4.0-11.0)
[2021-01-10 10:14] LABS: CALCIUM 8.1 mg/dL (8.5-10.1); CREATININE 0.8 mg/dL (0.6-1.0); GFR 85.4; POTASSIUM 4.1 mmol/L (3.5-5.1)
[2021-01-10 10:20] LABS: ALBUMIN 3.2 g/dL (3.4-5.0); ALBUMIN/GLOBULIN RATIO 0.9 (1.0-1.7); TOTAL BILIRUBIN 0.5 mg/dL (0.2-1.0); TOTAL PROTEIN 6.8 g/dL (6.4-8.2)
--- NOTE | 2021-01-10 10:42 | PHYS DOC ---
Past History Past Medical History: No Pertinent History, Constipation, Migraines Additional Past Medical Histor: complications with "colon and intestines" Past Surgical History: Appendectomy, , Hysterectomy Smoking: Non-smoker Alcohol Use: None Drug Use: None General Adult EDM: Chief Complaint: NAUSEA/VOMITING/DIARRHEA HPI: HPI: 30-year-old female presents with 10 days of nausea, vomiting, diarrhea. She started having symptoms while she was taking antibiotics for bacterial vaginosis. She has been done with these medications for several days but continues to have diarrhea and intermittent vomiting. She decided to come in this morning for evaluation. She has tried some kind of a liquid stomach stepping medication but has not slowed down the diarrhea. She denies any blood. She does not have an antiemetic at home. She is able to keep down some liquids most of the time but she is very worried about getting dehydrated. She denies fever or chills. She had a rapid Covid that was negative. Review of Systems: Review of Systems: Constitutional: Denies fever or chills Eyes: Denies change in visual acuity HENT: Denies nasal congestion or sore throat Respiratory: Denies cough or shortness of breath Cardiovascular: Denies chest pain or edema GI: Mild generalized abdominal pain, nausea, vomiting, diarrhea : Denies dysuria Musculoskeletal: Denies back pain or joint pain Integument: Denies rash Neurologic: Denies headache, focal weakness or sensory changes Endocrine: Denies polyuria or polydipsia Lymphatic: Denies swollen glands Psychiatric: Denies depression or anxiety Current Medications: Current Meds: Current Medications Medications (Trade) Dose Ordered Sig/[facility] Start Time Stop Time Status Last Admin Dose Admin Ondansetron HCl (Zofran) 4 mg 1X ONCE 01/10/21 09:45 01/10/21 09:46 DC 01/10/21 09:49 4 MG Sodium Chloride 1,000 ml @ 1,000 mls/hr 1X ONCE 01/10/21 09:45 01/10/21 10:44 01/10/21 09:50 1,000 MLS/HR Allergies: Allergies: Allergies Coded Allergies Type Severity Reaction Last Updated Verified adhesive Allergy Unknown rash 10/22/19 Yes ibuprofen Adverse Reaction Unknown 10/22/19 Yes Physical Exam: PE: Constitutional: Well developed, well nourished, no acute distress, non-toxic appearance. [] HENT: Normocephalic, atraumatic, bilateral external ears normal, oropharynx moist, no oral exudates, nose normal. [] Eyes: PERRLA, EOMI, conjunctiva normal, no discharge. [] Neck: Normal range of motion, no tenderness, supple, no stridor. [] Cardiovascular: Heart rate regular rhythm, no murmur [] Lungs & Thorax: Bilateral breath sounds clear to auscultation [] Abdomen: Bowel sounds normal, soft, no tenderness, no masses, no pulsatile mas ses. [] Skin: Warm, dry, no erythema, no rash. [] Back: No tenderness, no CVA tenderness. [] Extremities: No tenderness, no cyanosis, no clubbing, ROM intact, no edema. [] Neurologic: Alert and oriented X 3, normal motor function, normal sensory function, no focal deficits noted. [] Psychologic: Affect normal, judgement normal, mood normal. [] Current Patient Data: Labs: Laboratory Tests Test 01/10/21 09:50 White Blood Count 8.4 x10^3/uL (4.0-11.0) Red Blood Count 4.57 x10^6/uL (3.50-5.40) Hemoglobin 13.6 g/dL (12.0-15.5) Hematocrit 41.1 % (36.0-47.0) Mean Corpuscular Volume 90 fL (79-100) Mean Corpuscular Hemoglobin 30 pg (25-35) Mean Corpuscular Hemoglobin Concent 33 g/dL (31-37) Red Cell Distribution Width 14.1 % (11.5-14.5) Platelet Count 220 x10^3/uL (140-400) Neutrophils (%) (Auto) 57 % (31-73) Lymphocytes (%) (Auto) 34 % (24-48) Monocytes (%) (Auto) 6 % (0-9) Eosinophils (%) (Auto) 2 % (0-3) Basophils (%) (Auto) 0 % (0-3) Neutrophils # (Auto) 4.8 x10^3uL (1.8-7.7) Lymphocytes # (Auto) 2.9 x10^3/uL (1.0-4.8) Monocytes # (Auto) 0.5 x10^3/uL (0.0-1.1) Eosinophils # (Auto) 0.2 x10^3/uL (0.0-0.7) Basophils # (Auto) 0.0 x10^3/uL (0.0-0.2) Sodium Level 141 mmol/L (136-145) Potassium Level 4.1 mmol/L (3.5-5.1) Chloride Level 108 mmol/L (98-107) H Carbon Dioxide Level 23 mmol/L (21-32) Anion Gap 10 (6-14) Blood Urea Nitrogen 13 mg/dL (7-20) Creatinine 0.8 mg/dL (0.6-1.0) Estimated GFR (Cockcroft-Gault) 85.4 BUN/Creatinine Ratio 16 (6-20) Glucose Level 85 mg/dL (70-99) Calcium Level 8.1 mg/dL (8.5-10.1) L Total Bilirubin 0.5 mg/dL (0.2-1.0) Aspartate Amino Transferase (AST) 19 U/L (15-37) Alanine Aminotransferase (ALT) 23 U/L (14-59) Alkaline Phosphatase 67 U/L (46-116) Total Protein 6.8 g/dL (6.4-8.2) Albumin 3.2 g/dL (3.4-5.0) L Albumin/Globulin Ratio 0.9 (1.0-1.7) L Vital Signs: Vital Signs Date Time Temp Pulse Resp B/P (MAP) Pulse Ox O2 Delivery O2 Flow Rate FiO2 01/10/21 09:10 68 18 103/61 (75) 98 Room Air EKG: EKG: [] Radiology/Procedures: Radiology/Procedures: [] Impressions: CT abdomen pelvis with contrast dated 01/10/2021. COMPARISON: 10/21/2020. CLINICAL INDICATION: Diarrhea and vomiting pain. TECHNIQUE: Contiguous axial imaging the abdomen pelvis performed following the intravenous administration of 75 cc Omnipaque 300. One or more of the following individualized dose reduction techniques were utilized for this examination: 1. Automated exposure control 2. Adjustment of the mA and/or kV according to patient size 3. Use of iterative reconstruction technique FINDINGS: Images of lung bases show small noncalcified subpleural nodule in the left lower lobe laterally on image 4 that measures about 5 mm, unchanged from prior study. There is additional small subpleural nodule posteriorly in the left lower lobe on image 70 measures 3 mm, also unchanged. Heart size is stable. No pleural or pericardial effusion. Liver, spleen, pancreas, adrenal glands, gallbladder and kidneys are unremarkable. No hydronephrosis. Unopacified GI tract normal in caliber and contour. No focal bowel wall thickening. No inflammatory stranding in the mesentery. The appendix is not identified and may be surgically absent. Abdominal aorta normal in caliber. Images of pelvis show mildly distended urinary bladder. Uterus is surgically absent. Trace amount of free pelvic fluid. No pelvic adenopathy. Small complex cyst right ovary measuring up to 2 cm in size. Bone windows show no acute findings. IMPRESSION: 1. No acute abnormality of abdomen or pelvis. 2. Small noncalcified pulmonary nodules of the left lower lobe, nonspecific but unchanged from prior study. 3. Small amount of free pelvic fluid, nonspecific. 4. Small complex cyst right ovary.. Electronically signed by: Silvio Kaplan MD (01/10/2021 12:00 PM) [id number] DICTATED AND SIGNED BY: SILVIO KAPLAN MD DATE: 01/10/21 1155 CC: SABI GARDNER DO; PCP,NO ~MTH0 0 Heart Score: C/O Chest Pain: N/A Risk Factors: Risk Factors: DM, Current or recent (<one month) smoker, HTN, HLP, family history of CAD, obesity. Risk Scores: Score 0 - 3: 2.5% MACE over next 6 weeks - Discharge Home Score 4 - 6: 20.3% MACE over next 6 weeks - Admit for Clinical Observation Score 7 - 10: 72.7% MACE over next 6 weeks - Early Invasive Strategies Course & Med Decision Making: Course & Med Decision Making Pertinent Labs and Imaging studies reviewed. (See chart for details) The patient's labs are unremarkable. We gave her a liter of normal saline and 4 mg Zofran. I also ordered 4 mg of loperamide. The patient has not had any vomiting or diarrhea in the emergency room. The patient's CT is negative for acute findings. She does have a small complex ovarian cyst. See official read for details. I will discharge the patient on Zofran and advised that she try loperamide. She is stable for discharge at this time. [] Bre Disclaimer: Bre Disclaimer: This electronic medical record was generated, in whole or in part, using a voice recognition dictation system. Departure Departure: Impression: Primary Impression: Vomiting and diarrhea Disposition: HOME / SELF CARE / HOMELESS Condition: STABLE Referrals: PCP,NO (PCP) Patient Instructions: Diarrhea, [id number], Nausea and Vomiting, [id number] Scripts Ondansetron (ONDANSETRON ODT) 4 Mg Tab.rapdis 1 TAB PO PRN Q6-8HRS PRN for VOMITING, #16 TAB Prov: SABI GARDNER DO 01/10/21 SABI GARDNER DO Jan 10, 2021 10:42
[2021-01-10] MEDS ORDERED: LOPERAMIDE 2 MG CAPSULE PO ONE (11:00)
[2021-01-10] MEDS ORDERED: IOHEXOL 300 MG/ML 75 ML VIAL. IV ONE (11:30)
--- NOTE | 2021-01-10 12:03 | RAD ---
CT abdomen pelvis with contrast dated 01/10/2021. COMPARISON: 10/21/2020. CLINICAL INDICATION: Diarrhea and vomiting pain. TECHNIQUE: Contiguous axial imaging the abdomen pelvis performed following the intravenous administration of 75 cc Omnipaque 300. One or more of the following individualized dose reduction techniques were utilized for this examinat ion: 1. Automated exposure control 2. Adjustment of the mA and/or kV according to patient size 3. Use of iterative reconstruction technique FINDINGS: Images of lung bases show small noncalcified subpleural nodule in the left lower lobe laterally on im age 4 that measures about 5 mm, unchanged from prior study. There is additional small subpleural nodu le posteriorly in the left lower lobe on image 70 measures 3 mm, also unchanged. Heart size is stable . No pleural or pericardial effusion. Liver, spleen, pancreas, adrenal glands, gallbladder and kidneys are unremarkable. No hydronephrosis. Unopacified GI tract normal in caliber and contour. No focal bowel wall thickening. No inflammatory s tranding in the mesentery. The appendix is not identified and may be surgically absent. Abdominal aor ta normal in caliber. Images of pelvis show mildly distended urinary bladder. Uterus is surgically absent. Trace amount of free pelvic fluid. No pelvic adenopathy. Small complex cyst right ovary measuring up to 2 cm in size. Bone windows show no acute findings. IMPRESSION: 1. No acute abnormality of abdomen or pelvis. 2. Small noncalcified pulmonary nodules of the left lower lobe, nonspecific but unchanged from prior study. 3. Small amount of free pelvic fluid, nonspecific. 4. Small complex cyst right ovary.. Electronically signed by: Marquis Kaplan MD (01/10/2021 12:00 PM) [id number]
[2021-01-10] MEDS ORDERED: ONDA4TAB12 PO (12:15)
[2021-01-10 12:36] LABS: BACTERIA,URINE 0 /HPF (0-FEW); BILIRUBIN,URINE NEG (NEG); COLOR,URINE YELLOW; GLUCOSE,URINE NEG (NEG); NITRITE,URINE NEG (NEG); RBC,URINE 0 /HPF (0-2); SQUAMOUS EPITHELIAL CELL,UR FEW /LPF; UROBILINOGEN,URINE 0.2 mg/dL (0.2 mg/dL); WBC,URINE 0 /HPF (0-4)
[2021-01-10 12:37] LABS: CLARITY,URINE HAZY
[2021-01-10 12:40] LABS: BARBITURATES NEG (NEG); BENZODIAZEPINES POS (NEG); CANNABINOIDS NEG (NEG); COCAINE NEG (NEG); METHADONE NEG (NEG); OPIATES NEG (NEG); PHENCYCLIDINE NEG (NEG)
[2021-01-10 12:41] LABS: AMPHETAMINE/METHAMPHETAMINE NEG (NEG)
== END 2021-01-10 12:35 | disposition home or self-care (01) ==
LOC: ER 09:02
DX: R10.84 Generalized abdominal pain (principal); R11.2 Nausea with vomiting, unspecified; R19.7 Diarrhea, unspecified; Z88.8 Allergy status to other drugs, medicaments and biological substances; Z90.710 Acquired absence of both cervix and uterus
CPT/HCPCS: 36415; 74177; 80053; 80307; 81001; 85025; 96361; 96374; 99284; J2405; J7030; Q9967